=== PATIENT | male | born 1980 | race Caucasian/White ===

== ENCOUNTER 2019-05-14 03:25 | Emergency (ER) | payer SELFPAY ==
[~2019-05-14] VITALS: Ht 165.1 cm; Wt 76.7 kg
[2019-05-14 03:35] VITALS: BP 126/88
--- NOTE | 2019-05-14 03:42 | NUR ---
PT AMBULATED TO ER BED 8
--- NOTE | 2019-05-14 03:52 | NUR ---
DR. GLOVER BEDSIDE EVALUATING PT
[2019-05-14] MEDS ORDERED: oxyCODONE/APAP 5/325 MG 1 TAB TAB PO ONE (04:05)
--- NOTE | 2019-05-14 04:22 | NUR ---
38 Y/O MALE PRESENTS TO ED, C/O LOWER BACK PAIN 05/06. PT STATES PAIN STARTED 2 WEEKS AGO. RADIATES TO LEFT GROIN AND LEG REGION. PT STATES PAIN IS ACHING AND SHARP. PT HAS BEEN TAKING TYLENOL TO HELP ALLEVIATE PAIN BUT IN EFFECTIVE. ABLE TO AMBULATE WITH SLOW STEADY GAIT BUT WITH PAIN. PT DENIES NVD. PT VSS. ERMD AWARE. WILL CONTINUE TO MONITOR.
[2019-05-14 06:44] VITALS: BP 135/78
--- NOTE | 2019-05-14 06:44 | NUR ---
PT DISCHARGED WITH PAPERWORK. RX PERCOCET, EDUCATED PT REGARDING MEDICATIONS AND S/E. EDUCATED PT REGARDING D/C DIAGNOSIS AND INSTRUCTIONS. PT VERBALIZED UNDERSTANDING OF TEACHING. TOLD PT TO FOLLOW UP WITH PCP AND WHEN TO RETURN TO ED. PT VSS. ALL QUESTIONS ANSWERED.
== END 2019-05-14 06:44 | disposition home or self-care (01) ==
LOC: MED 03:25
DX: M54.16 Radiculopathy, lumbar region (principal); M54.42 Lumbago with sciatica, left side
CPT/HCPCS: 99283